=== PATIENT | male | born 1940 | race Caucasian/White ===

== ENCOUNTER 2020-07-08 06:26 | Day surgery (SDC) | payer OTHER ==
[2020-07-08] VITALS (7 sets, daily range): BP systolic 110–159; BP diastolic 58–79
[~2020-07-08] VITALS: Ht 172.7 cm; Wt 83.9 kg
[~2020-07-08 06:26] MED LIST: AMLO-343 PO; ASPI-25 PO; DUPI300S SQ; EVOL140S2 SQ; FISH1CAP63 PO; LOSA25TA41 PO; METO-408 PO
[2020-07-08] MEDS ORDERED: SODIUM CHLORIDE 0.9% 1000ML 1,000 ML IV ONE (06:45)
[2020-07-08] MEDS ORDERED: PROPOFOL 10 MG/ML 20ML VIAL IV ONE ×3 (08:29→08:56)
[2020-07-08] MEDS ORDERED: LEVOFLOXACIN 500 MG/D5W 100 ML 100 ML ONE (08:49)
== END 2020-07-08 09:50 | disposition home or self-care (01) ==
LOC: DAH 06:26 → ENDO 06:26
PROVIDERS: ATTEND Internal Medicine Gastroenterology
DX: K86.2 Cyst of pancreas (principal); C85.13 Unspecified B-cell lymphoma, intra-abdominal lymph nodes; Z20.828 Contact with and (suspected) exposure to other viral communicable diseases; I10 Essential (primary) hypertension; E78.5 Hyperlipidemia, unspecified; I25.10 Atherosclerotic heart disease of native coronary artery without angina pectoris; M19.90 Unspecified osteoarthritis, unspecified site; Z85.828 Personal history of other malignant neoplasm of skin; Z79.899 Other long term (current) drug therapy; Z79.82 Long term (current) use of aspirin; Z72.89 Other problems related to lifestyle; Z98.890 Other specified postprocedural states
CPT/HCPCS: 43238; A4215 ×2; A4221; A4222; A4223; A4606; A4620; A4663; C9803; J1956; J2704 ×3; J7030; U0003

== ENCOUNTER → 2021-09-02 | Outpatient (CLI) | payer OTHER | END | disposition home or self-care (01) | LOC: RAH 13:23 | PROVIDERS: ATTEND Internal Medicine Cardiovascular Disease | DX: I63.9 Cerebral infarction, unspecified (principal) | CPT/HCPCS: 70450 ==